=== PATIENT | male | born 1960 | race Caucasian/White ===

== ENCOUNTER 2023-05-29 15:10 | Emergency (ER) | payer BC, SELFPAY ==
[2023-05-29 15:15] VITALS: BP 159/102; PULSE 89; RESP 18; TEMP 36.4; O2SAT 97; BMI 29.5
--- NOTE | 2023-05-29 15:27 | CRLHL7_ITS ---
For Patients: As a result of the Cures Act, medical imaging exams and procedure reports are released immediately into your electronic medical record. You may view this report before your referring provider. If you have questions, please contact your health care provider. INDICATION: Once bladder injury COMPARISON: None. TECHNIQUE: Three views right index finger. FINDINGS: BONES: No fracture. Normal mineralization. No focal bone lesion. JOINT: Normal joint alignment. Joint spaces: Normal. Soft Tissues: Soft tissue amputation involving the nailbed and soft tissue tuft of the index finger. The soft tissue loss appears to extend all the way to the bone. No foreign body.. No foreign body. 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 No fracture or imbedded foreign body. Dictated by Anabelle Blakely MD @ 05/29/2023 3:55:32 PM (Electronically Signed)
--- NOTE | 2023-05-29 15:32 | ED.GENADULT ---
HPI - General Adult General Chief complaint: Laceration/Wound Stated complaint: Right finger laceration Time Seen by Provider: 05/29/23 15:24 History of Present Illness HPI narrative: Patient is a 62 year white male was using a wood splitter and cut off the tip of his right index finger. This is a tangential from medial to lateral from distal to proximal across the nail bed. Good hemostasis, no significant bleeding currently. Patient reports he is generally healthy, has no home medications. Patient knows that he is due for a tetanus shot. No other injuries reported. Related Data Home Medications Medication Instructions Recorded Confirmed No Known Home Medications 05/29/23 05/29/23 Allergies Allergy/AdvReac Type Severity Reaction Status Date / Time No Known Drug Allergies Allergy Verified 05/29/23 15:17 Review of Systems Status of ROS: Reports: 6 or more systems reviewed and unremarkable except as noted in History and below [facility] Social History Smoking Status: Never smoker How often do you have a drink containing alcohol: never AUDIT-C Alcohol total score: 0 Non-prescribed substance use: denies use Exam Narrative: Exam Narrative: Objective: Vital signs show elevated blood pressure He has got an avulsed distal index finger from about the mid distal phalanx from medial to lateral becoming more proximal, no significant bone edge sticking out. No loose skin flaps. Sensation of the finger that is present is still intact. Const: Vital Signs, click to edit/add: Vital Signs - 24 hr 05/29/23 15:15 Temperature 97.6 F Pulse Rate [Pulse Oximeter] 89 Respiratory Rate 18 Blood Pressure [Ri ght Upper Arm] 159/102 H Pulse Oximetry 97 Oxygen Delivery Me thod Room Air Course Vital Signs Vital signs: Initial Vital Signs Temperature 97.6 F 05/29/23 15:15 Temperature Source Temporal Artery Scan 05/29/23 15:15 Pulse Rate 89 05/29/23 15:15 Respiratory Rate 18 05/29/23 15:15 Blood Pressure 159/102 H 05/29/23 15:15 Blood Pressure Mean 121 H 05/29/23 15:15 Blood Pressure Position Sitting 05/29/23 15:15 Pulse Oximetry 97 05/29/23 15:15 Oxygen Delivery Method Room Air 05/29/23 15:15 Vital Signs Temperature 97.6 F 05/29/23 15:15 Pulse Rate 89 05/29/23 15:15 Respiratory Rate 18 05/29/23 15:15 Blood Pressure 159/102 H 05/29/23 15:15 Pulse Oximetry 97 05/29/23 15:15 Oxygen Delivery Method Room Air 05/29/23 15:15 Temperature 97.6 F 05/29/23 15:15 Pulse Rate 89 05/29/23 15:15 Respiratory Rate 18 05/29/23 15:15 Blood Pressure 159/102 H 05/29/23 15:15 Pulse Oximetry 97 05/29/23 15:15 Oxygen Delivery Method Room Air 05/29/23 15:15 Medications Administered Medications: Discontinued Medications Generic Name Dose Route Start Last Admin Trade Name Lauren PRN Reason Stop Dose Admin Hydrocodone Bitart/Acetaminophen 1 tab 05/29/23 15:51 05/29/23 15:57 Hydrocodone/Acetamin 7.5-325 Tablet PO 05/29/23 15:52 1 tab ONCE ONE Administration Cephalexin HCl 500 mg 05/29/23 15:28 05/29/23 15:53 Cephalexin 500 Mg Capsule PO 05/29/23 15:29 500 mg ONCE ONE Administration Diphtheria/Tetanus/Acell Pertussis 0.5 ml 05/29/23 15:28 05/29/23 15:53 Tetanus/Diphth/Pertussis 0.5 Ml Syringe IM 05/29/23 15:29 0.5 ml .ONCE ONE Administration Medical Decision Making MDM Narrative Medical decision making narrative: [age] year white male with an index finger avulsion. This is too distal to repair. There is no skin flap or ability to close. Will check an x-ray. Will cover with Surgicel and gauze. Have orthopedic follow-up in a couple of days. Patient will need updated Tdap will get him Ultram is to take as needed for pain as well as Advil as needed. And he can also take Keflex 500 q.i.d. x7 days. He has comfortable this plan. Addendum 3:50 p.m. the patient has an x-ray that by my read shows to have the bone intact. After sterile soaking there was no area to really close on the tip of his pulsed finger, but was mostly soft tissue. And a Surgicel followed by wrap was done and a tube gauze. Patient tolerated this well Discharge Plan Discharge Clinical Impression: Avulsion of finger tip Patient Disposition: Home w/ Parent or Adult Condition: Improved Additional Instructions: Keep covered for the next 2 days. We will attempt to make an orthopedic appointment for you in a couple of days dr. Trinidad, 05/31/23 10:40 am to recheck. Take antibiotics as prescribed, may use Advil or Aleve for pain as well as Tylenol. Return problems or concerns to the ER. Activity Level: Light activity Discharge Diet: Regular Prescriptions: No Action No Known Home Medications Stand Alone Forms: MyHealth Info Instructions
[2023-05-29] MEDS: cephALEXin 500 MG CAPSULE PO (15:53)
[2023-05-29] MEDS: TETANUS/DIPHTH/PERTUSSIS 0.5 ML SYRINGE IM (15:53)
[2023-05-29] MEDS: HYDROCODONE/ACETAMIN 7.5-325 TABLET 1 TAB PO (15:57)
== END 2023-05-29 16:20 | disposition home or self-care (01) ==
LOC: ED 15:52
PROVIDERS: Emergency Provider Family Medicine
DX: S61.300A Unspecified open wound of right index finger with damage to nail, initial encounter (principal); W31.2XXA Contact with powered woodworking and forming machines, initial encounter
CPT/HCPCS: 73140; 90471; 90715; 99283; A9270